=== PATIENT | female | born 1935 | race Caucasian/White ===

== ENCOUNTER 2017-04-10 16:53 | Emergency (ER) | payer MEDICARE ==
[2015-03-12 09:35] VITALS: BMI 36.6
[~2017-04-10 16:53] MED LIST: ARAVA10 MG PO; CARAFATE1 G/10 ML PO; INDERAL LA80 MG PO; LASIX40 MG PO; LEXAPRO10 MG PO; MEDROL2 MG PO; METHOTREXATE2.5 MG PO; NEXIUM40 MG PO; NYSTATIN ORAL SU5 ML PO; NYSTATIN1 PWD TOPICAL; PHENERGAN25 M1 PO; PREMARIN1.25 MG PO; ZOFRAN4 MG PO
[2017-04-10 18:14] LABS: BASOPHILS 2.6 % (0-2); EOSINOPHILS 7.5 % (0-7); HEMATOCRIT 41.8 % (36.0-48.0); HEMOGLOBIN 14.1 g/dL (12-16); IMMATURE GRANULOCYTES 0.2 % (0-5); LYMPHOCYTES 43.3 % (15-50); MCH 34.8 pg (26.0-34.0); MCHC 33.7 g/dL (31.0-37.0); MCV 103.2 fL (80.0-100.0); MEAN PLATELET VOLUME 11.5 fL (7.4-10.4); MONOCYTES 7.3 % (2-11); NEUTROPHILS 39.1 % (40-80); PLATELET COUNT 183 10x3/uL (130-400); RBC 4.05 10x6/uL (4.00-5.40); RDW 15.1 % (11.5-14.5); WBC 4.9 10x3/uL (4.8-10.8)
[2017-04-10 18:29] LABS: ANION GAP 12.8 mmol/L (8-16); BILIRUBIN - TOTAL 1.22 mg/dL (0.2-1.3); CARBON DIOXIDE 25.7 mmol/L (21.0-32.0); CREATININE - SERUM 0.9 mg/dL (0.6-1.3); POTASSIUM - SERUM 3.5 mmol/L (3.5-5.1); PROTEIN - SERUM 7.2 g/dL (6.4-8.2)
== END 2017-04-10 19:00 | disposition left against medical advice (07) ==
LOC: D.ER 16:53
PROVIDERS: Emergency Medicine
DX: R11.0 Nausea (principal); K21.9 Gastro-esophageal reflux disease without esophagitis; I10 Essential (primary) hypertension; E11.9 Type 2 diabetes mellitus without complications; F32.9 Major depressive disorder, single episode, unspecified

== ENCOUNTER 2017-08-24 11:10 | Observation (INO) | payer MEDICARE ==
[~2017-08-24] VITALS: Ht 160 cm; Wt 85.3 kg
[2017-08-24 12:06] LABS: BASOPHILS 0.6 % (0-2); EOSINOPHILS 3.3 % (0-7); HEMATOCRIT 43.3 % (36.0-48.0); HEMOGLOBIN 14.7 g/dL (12-16); IMMATURE GRANULOCYTES 0.4 % (0-5); LYMPHOCYTES 30.8 % (15-50); MCH 35.5 pg (26.0-34.0); MCHC 33.9 g/dL (31.0-37.0); MCV 104.6 fL (80.0-100.0); MEAN PLATELET VOLUME 11.9 fL (7.4-10.4); MONOCYTES 6.4 % (2-11); NEUTROPHILS 58.5 % (40-80); RBC 4.14 10x6/uL (4.00-5.40); RDW 15.4 % (11.5-14.5); WBC 10.2 10x3/uL (4.8-10.8)
[2017-08-24 12:22] LABS: PLATELET COUNT 127 10x3/uL (130-400)
[2017-08-24 12:23] LABS: ALBUMIN 3.3 g/dL (3.4-5.0); ANION GAP 15.9 mmol/L (8-16); BILIRUBIN - TOTAL 3.94 mg/dL (0.2-1.3); CALCIUM 9.2 mg/dL (8.5-10.1); CARBON DIOXIDE 26.1 mmol/L (21.0-32.0); CREATININE - SERUM 0.9 mg/dL (0.6-1.3); PROTEIN - SERUM 8.1 g/dL (6.4-8.2)
[2017-08-24 14:32] LABS: UDS - AMPHET NEGATIVE QUAL (NEGATIVE); UDS - BARB NEGATIVE QUAL (NEGATIVE); UDS - BENZO NEGATIVE QUAL (NEGATIVE); UDS - COCAINE NEGATIVE QUAL (NEGATIVE); UDS - OPIATE POSITIVE QUAL (NEGATIVE); UDS - PCP NEGATIVE QUAL (NEGATIVE); UDS - THC NEGATIVE QUAL (NEGATIVE)
[2017-08-24 14:35] LABS: APPEARANCE CLEAR (CLEAR); BILIRUBIN NEGATIVE (NEGATIVE); COLOR YELLOW (YELLOW); GLUCOSE NEGATIVE (NEGATIVE); KETONE NEGATIVE (NEGATIVE); NITRITE NEGATIVE (NEGATIVE); PROTEIN NEGATIVE (NEGATIVE); UROBILINOGEN NORMAL (NORMAL)
[2017-08-24 14:36] LABS: BACTERIA FEW /hpf (NONE SEEN); EPITHELIAL CELLS 0-5 /hpf (0-5); WHITE CELLS - URINE 0-5 /hpf (0-5)
--- NOTE | 2017-08-24 17:55 | NUR ---
PT ARRIVES FROM ER VIA STRETCHER ACCOMPANIED BY ER NURSE. PLACED ON TELE, NSR ON MONITOR - HR 97. VSS, AFEBRILE. PT HAS REPORTEDLY ORTHOSTATIC HYPOTENSION IN THE ER. INSTRUCTED PT AND SON THAT PT NEEDS TO STAY IN THE BED AND TO USE CALL LIGHT FOR ASSIST. BED ALARM SET. NS @ 100 CC/HR INFUSING FROM ED TO RIGHT HAND IV SITE, SITE WITHOUT REDNESS OR SWELLING. NO NEEDS VOICED. WILL CONT TO MONITOR.
[2017-08-24 18:10] VITALS: BP 139/46; BMI 33.3
[2017-08-24] MEDS ORDERED: PREDNISONE1 MG PO (18:21)
[2017-08-24] MEDS ORDERED: OXYBUTYNIN CHLOR5 MG PO (18:21)
[2017-08-24] MEDS ORDERED: AMBIEN5 MG PO (18:22)
[2017-08-24] MEDS ORDERED: REGLAN5 MG PO (18:22)
[2017-08-24] MEDS ORDERED: LEVOTHYROXINE50 MCG PO (18:22)
[2017-08-24 21:02] VITALS: BP 123/48
[2017-08-25 00:30] VITALS: BP 92/66
[2017-08-25 06:03] VITALS: BP 95/56
--- NOTE | 2017-08-25 07:10 | NUR ---
RECEIVED REPORT. ASSUMED CARE OF PATIENT. RESTING WITH EYES CLOSED. RESP EVEN AND UNLABORED. EASILY AROUSED. NO DISTRESS. CALL LIGHT WITHIN REACH.
[2017-08-25 08:07] VITALS: BP 132/77
[2017-08-25 09:28] VITALS: Ht 160 cm; Wt 85.3 kg
--- NOTE | 2017-08-25 09:50 | NUR ---
ASSISTED PATIENT OFF BEDPAN. INCONTINENT CARE PROVIDED. NO DISTRESS.
--- NOTE | 2017-08-25 11:30 | NUR ---
RESTING IN BED WITH EYES CLOSED. EASILY AROUSED. NO DISTRESS. CALL LIGHT WITHIN REACH.
--- NOTE | 2017-08-25 11:46 | NUR ---
SCD'S APPLIED TO BILATERAL LOWER EXTREMITES AT THIS TIME.
[2017-08-25 13:38] VITALS: BP 130/58
[2017-08-25 14:57] LABS: BASOPHILS 0.5 % (0-2); HEMATOCRIT 35.8 % (36.0-48.0); HEMOGLOBIN 12.1 g/dL (12-16); IMMATURE GRANULOCYTES 0.4 % (0-5); LYMPHOCYTES 27.2 % (15-50); MCH 35.4 pg (26.0-34.0); MCHC 33.8 g/dL (31.0-37.0); MCV 104.7 fL (80.0-100.0); MEAN PLATELET VOLUME 12.3 fL (7.4-10.4); MONOCYTES 9.8 % (2-11); NEUTROPHILS 60.1 % (40-80); PLATELET COUNT 111 10x3/uL (130-400); RBC 3.42 10x6/uL (4.00-5.40); RDW 15.8 % (11.5-14.5); WBC 8.2 10x3/uL (4.8-10.8)
[2017-08-25 15:12] LABS: ANION GAP 10.5 mmol/L (8-16); BILIRUBIN - TOTAL 4.2 mg/dL (0.2-1.3); CALCIUM 7.7 mg/dL (8.5-10.1); CARBON DIOXIDE 25.3 mmol/L (21.0-32.0); CREATININE - SERUM 0.8 mg/dL (0.6-1.3); POTASSIUM - SERUM 3.8 mmol/L (3.5-5.1)
--- NOTE | 2017-08-25 15:23 | NUR ---
Rehab Prescreening Consult recieved and the chart has been reviewed. This patient is a new admission and has a pending consult with Dr Chau, and PT. At this time we are unable to determine what her rehab needs are. Rehab will follow along and see how she progresses. Starr Rowe RN Clinical Liaison, Rehab
[2017-08-25 15:26] LABS: ALBUMIN 2.4 g/dL (3.4-5.0); PROTEIN - SERUM 5.7 g/dL (6.4-8.2)
[2017-08-25 15:37] LABS: CREATINE KINASE 81 UL (21-215)
[2017-08-25 15:38] LABS: CKMB 0.9 U/L (0.0-3.6)
[2017-08-25 15:39] LABS: TROPONIN-I 0.199 ng/mL (0.000-0.060)
[2017-08-25 16:52] VITALS: BP 136/54
--- NOTE | 2017-08-25 19:37 | NUR ---
PT IN BED SON. FAMILY AT BEDSIDE. DENIES NEEDS AT THIS TIME.
[2017-08-25 21:33] LABS: CKMB 1.1 U/L (0.0-3.6); CREATINE KINASE 75 UL (21-215)
[2017-08-25 21:36] LABS: TROPONIN-I 0.172 ng/mL (0.000-0.060)
[2017-08-25 21:53] VITALS: BP 147/46
[2017-08-26] VITALS (9 sets, daily range): BP systolic 136–167; BP diastolic 42–88
[2017-08-26 03:50] LABS: BASOPHILS 0.3 % (0-2); EOSINOPHILS 2.9 % (0-7); HEMATOCRIT 33.2 % (36.0-48.0); HEMOGLOBIN 11.6 g/dL (12-16); IMMATURE GRANULOCYTES 0.3 % (0-5); LYMPHOCYTES 29.8 % (15-50); MCH 35.9 pg (26.0-34.0); MCHC 34.9 g/dL (31.0-37.0); MCV 102.8 fL (80.0-100.0); MEAN PLATELET VOLUME 12.3 fL (7.4-10.4); MONOCYTES 7.5 % (2-11); NEUTROPHILS 59.2 % (40-80); PLATELET COUNT 113 10x3/uL (130-400); RBC 3.23 10x6/uL (4.00-5.40); RDW 15.5 % (11.5-14.5); WBC 6.7 10x3/uL (4.8-10.8)
[2017-08-26 04:38] LABS: ALBUMIN 2.1 g/dL (3.4-5.0); ALKALINE PHOSPHATASE 130 U/L (46-116); ALT (SGPT) 12 U/L (10-68); CALC OSMOLALITY 267 mosm/kg (275-300); CALCIUM 7.9 mg/dL (8.5-10.1); CARBON DIOXIDE 25.8 mmol/L (21.0-32.0); CHLORIDE - SERUM 104 mmol/L (98-107); CREATINE KINASE 64 UL (21-215); CREATININE - SERUM 0.8 mg/dL (0.6-1.3); GLUCOSE 103 mg/dL (74-106); POTASSIUM - SERUM 3.8 mmol/L (3.5-5.1); PROTEIN - SERUM 5.7 g/dL (6.4-8.2); SODIUM 135 mmol/L (136-145); TROPONIN-I 0.113 ng/mL (0.000-0.060); UREA NITROGEN 8 mg/dL (7-18); eGFR NON AFRICAN AMERICAN 73 mL/min (90-120)
--- NOTE | 2017-08-26 05:29 | NUR ---
PT LYING IN BED, AWAKE, ALERT, PA SIDE SEAM ENVELOPE MACHINE OPERATOR AT BEDSIDE. NO NEEDS, CONTINUE TO MONITOR CLOSELY. BED LOW, CALL LIGHT IN REACH, SIDE RAILS X 2, HOB 35 DEGREES.
--- NOTE | 2017-08-26 06:23 | NUR ---
PT IV REMOVED AT THIS TIME. CATH TIP INTACT WILL ATTEMPT TO RESITE.
--- NOTE | 2017-08-26 07:09 | NUR ---
22G IV TO LEFT WRIST WITH 2 ATTEMPTS. COVERED WITH OP SITE, DATED AND INITIALED. TOLERATED WELL
--- NOTE | 2017-08-26 07:30 | NUR ---
REPORT RECEIVED. RR EVEN AND UNLABORED, PT REPORTS HAVING FREQUENT LOOSE STOOLS. WILL CHECK PT FOR C-DIFF. PT REPORTS PAIN IN STOMACH AT 6/10. WILL CTM.
--- NOTE | 2017-08-26 09:40 | NUR ---
FAMILY CALLED REGARDING PT CONDTION, DISCUSSED PT CONDITION WITH FAMILY MEMBER. VERBALIZED UNDERSTANDING.
--- NOTE | 2017-08-26 18:19 | NUR ---
Patient Name: GAVI CREWS Admission Status: ER Accout number: [id number] Admission Date: 08-24-2017 : 1934 Admission Diagnosis: Attending: MAURI DC Current LOS: 2 Anticipated DC Date: 08-27-2017 Planned Disposition: Inpatient Rehab Primary Insurance: MEDICARE A & B PLANNED EXTERNAL PROVIDER: [facility] INPATIENT REHAB Discharge Planning Comments: * Is the patient Alert and Oriented? Yes 0 * How many steps to enter\exit or inside your home? 5 0 * PCP DR. OCONNOR 0 * Pharmacy [facility] [address] 0 * Preadmission Environment Home with Family 0 * ADLs Independent 0 * Equipment Cane 0 * Other Equipment NO MEDICAL EQUIPMENT PROVIDER PREFERENCE 0 * List name and contact numbers for known caregivers / representatives who currently or will assist patient after discharge: BELIA AVILA, SON, 0 * Community resources currently utilized None 0 * Please name any agencies selected above. NONE 0 * Additional services required to return to the preadmission environment? Yes * Can the patient safely return to the preadmission environment? Yes 0 * Has this patient been hospitalized within the prior 30 days at any hospital? No 0 CM RECEIVED ORDER FOR INPATIENT REHAB PRESCREENING. CM MET WITH PT IN ROOM TO DISCUSS DISCHARGE PLANNING AND NEEDS. PT REPORTS LIVING AT HOME INDEPENDENTLY WITH HER ADULT SON. PT HAS A CANE AND NO MEDICAL EQUIPMENT PROVIDER PREFERENCE. PT HAS NO OUTSIDE SERVICES ASSISTING IN THE HOME. CM DISCUSSED AVAILABILITY OF HOME HEALTH, REHAB SERVICES AND MEDICAL EQUIPMENT. CM DISCUSSED LOCATIONS AND TYPES OF REHABS AVAILABLE. PT WOULD LIKE TO STAY AT [facility] FOR REHAB IF POSSIBLE, FEELS THAT SHE CAN PARTICIPATE FULLY AND GET BACK TO HER LEVEL OF INDEPENDENCE FOR DISCHARGE HOME. PT REPORTS HER SON WILL PICK HER UP FOR DISCHARGE HOME. CM WAITING RESULTS OF INPATIENT REHAB PRESCREENING BY [facility] INPATIENT [facility]. Water Filterer Helper: Naeem Botello
--- NOTE | 2017-08-26 18:20 | NUR ---
PT RESTING QUIETLY, RR EVEN AND UNLABORED. PT DENIES NEEDS AT THIS TIME. WILL GIVE REPOR TO PT CONDTION FOR THE DAY.
--- NOTE | 2017-08-26 19:30 | NUR ---
PT. IN BED WITH HOB SLIGHTLY ELEVATED FOR COMFORT. ASSESSMENT COMPLETED. NO VOICED NEEDS AT THIS TIME. CALL LIGHT WITHIN REACH.
--- NOTE | 2017-08-26 23:28 | NUR ---
PT. IN BED WITH HOB UP SLIGHTLY FOR COMFORT. EYES CLOSED AND RESP. EVEN. IV INFUSING VIA PUMP WITH MULTIPLE ALARMS IV SITE TO LEFT WRIST IS POSITIONAL. EXPLAINED THE PROBLEM TO PT. AND SHE WILL TRY TO KEEP WRIST FROM BENDING. CALL LIGHT REMAINS WITHIN REACH.
--- NOTE | 2017-08-27 03:25 | NUR ---
PT. IN BED WITH HOB UP FOR COMFORT WITH EYES CLOSED AND RESP. EVEN. IV INFUSING VIA PUMP AT 100/HR WITHOUT ANY ALARMS RECENTLY. CALL LIGHT WITHIN REACH.
--- NOTE | 2017-08-27 07:32 | NUR ---
AM ROUNDING- RECEIVED REPORT FROM BANK APPRAISER NURSE CRISTIANA. PT IS CURRENTLY LAYING IN BED ON BACK WITH EYES OPEN RESTING. LAB IN ROOM CURRENTLY OBTAINING LAB DRAW. ON ROOM AIR. JOHNATHON IN TELEMETRY AWARE THAT PT HAS ORDERS FOR TELEMETRY. IV SEEN TO LEFT WRIST WITH NS RUNNING AT 100CC. SCDS ARE ON. NO NEED AT THIS CURRENT TIME. WILL CONTINUE TO MONITOR AND CONTINUE WITH PLAN OF CARE.
[2017-08-27 07:36] LABS: BASOPHILS 0.6 % (0-2); EOSINOPHILS 6.7 % (0-7); HEMATOCRIT 35.4 % (36.0-48.0); HEMOGLOBIN 12.3 g/dL (12-16); IMMATURE GRANULOCYTES 0.3 % (0-5); LYMPHOCYTES 23.6 % (15-50); MCH 36.1 pg (26.0-34.0); MCHC 34.7 g/dL (31.0-37.0); MCV 103.8 fL (80.0-100.0); MONOCYTES 8.8 % (2-11); PLATELET COUNT 120 10x3/uL (130-400); RBC 3.41 10x6/uL (4.00-5.40); RDW 16.3 % (11.5-14.5)
[2017-08-27 08:00] VITALS: BP 146/76
[2017-08-27 08:16] LABS: ALBUMIN 2.3 g/dL (3.4-5.0); ALKALINE PHOSPHATASE 130 U/L (46-116); BILIRUBIN - TOTAL 1.96 mg/dL (0.2-1.3); CALC OSMOLALITY 275 mosm/kg (275-300); CALCIUM 8.6 mg/dL (8.5-10.1); CARBON DIOXIDE 24.4 mmol/L (21.0-32.0); CHLORIDE - SERUM 107 mmol/L (98-107); CREATININE - SERUM 0.6 mg/dL (0.6-1.3); GLUCOSE 107 mg/dL (74-106); PROTEIN - SERUM 6.6 g/dL (6.4-8.2); SODIUM 139 mmol/L (136-145); UREA NITROGEN 6 mg/dL (7-18); eGFR NON AFRICAN AMERICAN > 90 mL/min (90-120)
[2017-08-27 08:21] LABS: ALT (SGPT) 17 U/L (10-68); POTASSIUM - SERUM 4.9 mmol/L (3.5-5.1)
--- NOTE | 2017-08-27 10:38 | NUR ---
UPON DOING DAILY SHIFT ASSESSMENT. PTS BUTTOCK/PERINEAL AREA IS REDDENED. BUTT PASTE APPLIED AND PT TURNED ON LEFT SIDE.
[2017-08-27 12:00] VITALS: BP 182/72
--- NOTE | 2017-08-27 12:00 | NUR ---
Rehab Note- Visited with the patient, the patient is very interested [facility] Acute Rehab. Will admit to [facility] Rehab when ready for discharge. Spoke with RACHAEL Ramsay and LETITIA Aguero. Thank you for this referral! Mariana Jimenez RN Clinical Liaison, [facility] Rehab
--- NOTE | 2017-08-27 17:04 | NUR ---
CALLED REPORT AND SPOKE WITH RONALD. RONALD STATES IT IS OK TO GO AHEAD AND LEAVE PTS IV IN. WILL DO ORDERED. WILL D/C PT PER POLICY AND D/C TO REHAB ORDERED.
--- NOTE | 2017-08-27 17:33 | NUR ---
D/C INSTRUCTIONS EXPLAINED TO PT. D/C PAPERWORK SIGNED BY PT AND PLACED IN CHART. PTS BELONGINGS GATHERED. NOVA LANG RETURNED HEART MONITOR TO JOHNATHON IN TELEMETRY. IV IS IN PLACE (REHAB NURSE RONALD STATES TO GO AHEAD AND LEAVE IT IN). WILL D/C PT TO REHAB ORDERED.
--- NOTE | 2017-08-27 18:20 | NUR ---
1800- PT D/C TO REHAB HAS ORDERED.
--- NOTE | 2017-08-31 13:30 | EC ---
PATIENT:GAVI CREWS DATE OF SERVICE: 08/24/17 SEX: F MEDICAL RECORD: [id number] DATE OF : 34 LOCATION:D.M2 D.213 AGE OF PATIENT: 81 ADMISSION DATE: 08/24/17 REFERRING PHYSICIAN: INTERPRETING PHYSICIAN: THOMAS POSADAS MD ECHOCARDIOGRAM REPORT ECHO CHARGES 4 ECHO COMPLETE CLINICAL DIAGNOSIS: SYNCOPE HX OF HTN ECHOCARDIOGRAPHIC MEASUREMENTS (adult normal given) AC root (d.<3.7cm) 3.6 cm LV Septum d (<1.2 cm> 1.6 cm Valve Excursion 1.7 cm LV Septum (systole) 2.3 cm Left Atria (s.<4.0cm> 4.6 cm LVPW d(<1.2cm) 1.8 cm RV (d.<2.3cm) 3.5 cm LVPW (sytole) 2.3 cm LV diastole(<5.6CM) 4.1 cm MV E-F(>70mm/sec) cm LV systole 2.0 cm LVOT Diameter 1.8 cm MV exc.(>10mm) 1.6 cm Est.ejection fraction (50-75%) % Pericardial Effusion N DOPPLER: LVIT cm/sec A 79.0 cm/sec E 99.0 cm/sec LA cm/sec RVSP 98 mmHg LVOT 112 cm/sec AOP1/2T m/s Asc. Ao 170 cm/sec RVOT 109 cm/sec RA cm/sec PA 154 cm/sec AV Gradient Peak 11.55mmHg AV Mean 5.56 mmHg AV Area 1.6 cm MV Gradient Peak 6.18 mmHg MV Mean 1.96 mmHg MV Area cm COMMENTS: Ring Facer: 2 REID RICH Civil Clerk: 3 Dr. Luciano TAPE# PACS DATE OF SERVICE: 08/25/2017 Adequate 2D echo, color flow and spectral Doppler, and M-mode. LVH is present. LV internal dimension is normal. Wall motion is normal. EF is greater than 55%. Aortic valve is sclerotic. No evidence of stenosis by Doppler interrogation. The left atrium is normal. Mitral valve shows no prolapse. Trace mitral regurgitation. Right-sided chamber is normal. Mild TR by color flow imaging. TRANSINT:[id number] Voice Confirmation ID: [id number] DOCUMENT ID: [id number] ECHOCARDIOGRAM REPORT [id number] VILLALOBOS,THOMAS Martinez MD at 1330 CC: [id number] DICTATION DATE: 08/25/17 161 RIP/MOULD OPERATOR: 08/25/17 1759 DIS IN 08/27/17 [facility] [address] [place] [address]
--- NOTE | 2017-08-31 13:30 | CN ---
PATIENT NAME:ELVA CREWS MEDICAL RECORD: [id number] : 33 LOCATION:[facility] D.2136 ADMIT DATE: 08/24/17 ACCOUNT: [id number] CONSULTING PHYSICIAN: THOMAS POSADAS MD REFERRING PHYSICIAN: MAURI DC MD DATE OF CONSULTATION: 08/25/2017 HISTORY OF PRESENT ILLNESS: Elva Crews is an 81-year-old female, poor historian, history of rheumatoid arthritis, on remittive agents including methotrexate. Was at home with a syncopal episode, it sounds like orthostatic. The patient is a poor historian. No chest pain or other antecedent symptomatology. Was found to be orthostatic at that time and we are asked to see her concerning cardiovascular status. PAST MEDICAL HISTORY: Includes: 1. History of rheumatoid arthritis. 2. Hypothyroidism, on replacement. ALLERGIES: ANTIHISTAMINES AND ASPIRIN. SOCIAL HISTORY: Unobtainable due to the patient factors. REVIEW OF SYSTEMS: Unobtainable due to the patient factors. MEDICATIONS: Include Phenergan 50 mg q.6 hours p.r.n., methotrexate 15 mg q. Thursday, Inderal 80mg p.o. daily, Lexapro 10 mg p.o. daily, Ambien 5 at bedtime p.r.n., Lasix 40 daily p.r.n., Carafate 1 gm a.c. and at bedtime, Reglan 5 mg a.c. and at bedtime, prednisone 1 mg p.o. t.i.d., Synthroid 50 mcg daily, Ditropan 5 mg b.i.d., Arava 10 mg p.o. daily. PHYSICAL EXAMINATION: GENERAL: Pleasant female in no acute distress. VITAL SIGNS: Blood pressure 130/58, pulse 70 and regular. HEENT: Normocephalic, atraumatic. NECK: No JVD or bruit. HEART: Regular. No murmurs are noted. LUNGS: Clear with good air excursion. ABDOMEN: Soft, nontender. EXTREMITIES: Pulse well preserved at 2+ with no edema. IMPRESSION: Syncopal episode. It could be secondary to orthostasis. I agree with hydration, checking echocardiographic study. Enzymes negative at this point. If orthostatic continues to be a problem, could use mineralocorticoid such as Florinef versus ProAmatine. Further recommendation based on the above. TRANSINT:[id number] Voice Confirmation ID: [id number] DOCUMENT ID: [id number] CONSULT REPORT [id number] ELVA CREWS,THOMAS Martinez MD at 1330 CC: [id number] DICTATION DATE: 08/25/17 1507 CORE PASTER: 08/25/17 1713 DIS IN 08/27/17 [place] [id number] [place] [id number]
== END 2017-08-27 18:22 ==
LOC: D.ER 11:10 → OBSVTIME 16:27 → D.M2 16:27
PROVIDERS: Emergency Medicine; ADMIT Emergency Medicine
DX: R55 Syncope and collapse (principal); M06.9 Rheumatoid arthritis, unspecified; I10 Essential (primary) hypertension; K21.9 Gastro-esophageal reflux disease without esophagitis; E03.9 Hypothyroidism, unspecified; I08.1 Rheumatic disorders of both mitral and tricuspid valves; J32.0 Chronic maxillary sinusitis

== ENCOUNTER 2017-08-27 16:26 | Inpatient (IN) | payer MEDICARE ==
[2017-08-26 20:00] VITALS: BP 139/62
[~2017-08-27] VITALS: Ht 157.5 cm; Wt 82.6 kg
[~2017-08-27 16:26] MED LIST changes: +AMBIEN5 MG PO; +LEVOTHYROXINE50 MCG PO; +OXYBUTYNIN CHLOR5 MG PO; +PREDNISONE1 MG PO; +REGLAN5 MG PO
--- NOTE | 2017-08-27 20:00 | NUR ---
PT IN BED WITH HOB UP FOR COMFORT. WATCHING TV. ALERT & ORIENTED X3. LEFT ARM SL. NO O2. SCD'S. INCONTINENT AT TIMES. GROIN & BUTTOCKS ARE VERY RED. BED IN LOWEST POSITION AND CALL LIGHT WITHIN REACH.
[2017-08-27 20:30] VITALS: BP 139/62
--- NOTE | 2017-08-28 | NUR ---
PT LYING IN BED WITH HOB UP FOR COMFORT. EYES CLOSED. CHEST RISING AND FALLING. BED IN LOWEST POSITION AND CALL LIGHT WITHIN REACH.
--- NOTE | 2017-08-28 00:53 | NUR ---
MONCHO DONG TO DO ASSESSMENT.
[2017-08-28 02:26] VITALS: BMI 33.3
--- NOTE | 2017-08-28 02:35 | NUR ---
ADMISSION ASSESSMENT COMPLETE AFTER ASSISTING PRIMARY NURSE TO CLEANSE AND CHANGED PATIENT FROM MODERATE URINARY INCONTINENCE. APPLIED CALMOSEPTINE TO VERY RED EXCORIATED AREAS STRETCHING FROM EXTERNAL LABIA CLEAR TO COCCYX.
--- NOTE | 2017-08-28 04:00 | NUR ---
PT LYING IN BED WITH HOB UP FOR COMFORT. EYES CLOSED. RESPIRATIONS EVEN AND UNLABORED. BED IN LOWEST PSOITION AND CALL LIGHT WITHIN REACH.
[2017-08-28 06:11] LABS: BASOPHILS 0.7 % (0-2); EOSINOPHILS 7.7 % (0-7); HEMATOCRIT 33.4 % (36.0-48.0); HEMOGLOBIN 11.5 g/dL (12-16); IMMATURE GRANULOCYTES 0.2 % (0-5); LYMPHOCYTES 29.6 % (15-50); MCH 35.7 pg (26.0-34.0); MCHC 34.4 g/dL (31.0-37.0); MCV 103.7 fL (80.0-100.0); MEAN PLATELET VOLUME 11.9 fL (7.4-10.4); MONOCYTES 12.5 % (2-11); NEUTROPHILS 49.3 % (40-80); PLATELET COUNT 120 10x3/uL (130-400); RBC 3.22 10x6/uL (4.00-5.40); RDW 15.9 % (11.5-14.5); WBC 5.7 10x3/uL (4.8-10.8)
[2017-08-28 06:37] LABS: CALC OSMOLALITY 274 mosm/kg (275-300); CALCIUM 8.3 mg/dL (8.5-10.1); CARBON DIOXIDE 27.3 mmol/L (21.0-32.0); CHLORIDE - SERUM 107 mmol/L (98-107); CREATININE - SERUM 0.6 mg/dL (0.6-1.3); GLUCOSE 83 mg/dL (74-106); POTASSIUM - SERUM 3.5 mmol/L (3.5-5.1); SODIUM 140 mmol/L (136-145); UREA NITROGEN 4 mg/dL (7-18); eGFR NON AFRICAN AMERICAN > 90 mL/min (90-120)
--- NOTE | 2017-08-28 07:01 | NUR ---
RESTING QUIETLY IN BED. CALL LIGHT IN REACH. BED IN LOWEST POSITION.
[2017-08-28 08:00] VITALS: BP 144/60
--- NOTE | 2017-08-28 08:45 | NUR ---
DR. Arley DC INTO SEE PATIENT. NEW ORDERS RECEIVED
--- NOTE | 2017-08-28 10:00 | NUR ---
PATIENT IN REHAB ROOM. WORKING WITH PHYISCAL THERAPIST. WALKING DOWN HALLWAY WITH WHEELED WALKER, THERAPIST USING GAIT BELT.
--- NOTE | 2017-08-28 12:30 | NUR ---
SALINE LOCK LEFT WRIST REMOVED DUE TO NOT FLUSHING. IV OUT. OCCUATIONAL THERAPIST WORKING WITH PATIENT. HELPED PATIENT WITH A SHOWER.
[2017-08-28 13:08] VITALS: Ht 157.5 cm; Wt 82.6 kg
--- NOTE | 2017-08-28 15:52 | NUR ---
PATIENT ADMITTED TO REHAB FROM ACUTE FLOOR. HER PCP IS . DME AT HOME IS Michelle [facility]ID[facility]. HER [facility]AC[facility] IS [facility]. WILL CONTINUE TO FOLLOW WITH PATIENT AND ASSIST WITH DISCHARGE PLANS.
--- NOTE | 2017-08-28 17:49 | NUR ---
PATIENT HAS SCD'S ON BILATERAL WHILE IN BED.
--- NOTE | 2017-08-28 19:15 | NUR ---
IN BED, AWAKE. APPLIED SCD'S TO OTONIEL CARRILLO'S. ASSISTED HER TO COMPLETE HER MENU.
--- NOTE | 2017-08-28 21:35 | NUR ---
ASSESSMENT AND HS MEDS COMPLETE. REMOVED SCRUB PANTS AND CLEANSED PATIENT FROM SMALL URINE INCONTINENCE. APPLIED CALMOSEPTINE LIBERALLY TO PERINEAL AND PERANAL SKIN DUE TO REDNESS AND EXCORIATION. C/O PAIN LEVEL OF 4/10 (GENERAL BODY ACHES) WHICH SHE ATRIBUTES TO HER RA AND EXERTION IN P/T. GAVE HER TYLENOL 650 MG PO WITH HS MEDS.
[2017-08-28 22:38] VITALS: BP 137/42
--- NOTE | 2017-08-28 22:40 | NUR ---
RESTING QUIETLY IN BED, EYES CLOSED.
--- NOTE | 2017-08-29 00:05 | NUR ---
SITTING UP IN W/C AT BEDSIDE, EATING JELLO. SAYS IS A BIT RESTLESS TONIGHT.
--- NOTE | 2017-08-29 02:40 | NUR ---
CLEANSED AND CHANGED PATIENT FROM LARGE URINE INCONTINENCE. APPLIED CALMOSEPTINE OINTMENT TO REDDENED PERINEAL AND PERIANAL SKIN.
--- NOTE | 2017-08-29 04:15 | NUR ---
RESTING IN BED, EYES CLOSED. APPEARS COMFORTABLE.
--- NOTE | 2017-08-29 05:15 | NUR ---
CLEANSED AND CHANGED PATIENT, HER PINK PAD, AND HER SCRUB TOP AFTER LARGE URINE INCONTINENCE. REAPPLIED CALMOSEPTINE TO EXCORIATION OF PERINEAL AND PERIANAL AREAS AND ASSISTED HER TO DON A FRESH PULL-UP. REMOVED SCD'S.
--- NOTE | 2017-08-29 06:00 | NUR ---
RESTING QUEITLY IN BED, EYES CLOSED.
[2017-08-29 09:06] VITALS: BP 175/68
--- NOTE | 2017-08-29 09:10 | NUR ---
PT AM MEDS ADMINISTERED. PT DENIES NEEDS AT THIS TIME. WCTM.
--- NOTE | 2017-08-29 12:15 | NUR ---
PT EATING LUNCH, C/O NAUSEA. PT PROVIDED WITH EMESIS BAG. WCTM.
--- NOTE | 2017-08-29 18:31 | NUR ---
PT EATING DINNER WITH OT, DENIES NEEDS. WCTM.
--- NOTE | 2017-08-29 19:30 | NUR ---
ASSISTED PT TO BATHROOM AND BACK TO BED.
--- NOTE | 2017-08-29 21:10 | NUR ---
ASSISTED PT TO BATHROOM.
[2017-08-30] VITALS: BP 175/68
--- NOTE | 2017-08-30 01:26 | NUR ---
RESTING IN BED WITH EYES CLOSED. NO S/S OF DISTRESS OBSERVED. CALL LIGHT AND OVERBED TABLE IN REACH.
--- NOTE | 2017-08-30 01:33 | NUR ---
REST IN BED, EYE CLOSE, CALL LIGHT IN REACH.
[2017-08-30 09:12] VITALS: BP 161/83
--- NOTE | 2017-08-30 09:43 | NUR ---
PT AM MEDS ADMINISTERD. PT MAEVE MCKENNA. ANIA.
--- NOTE | 2017-08-30 12:15 | NUR ---
PT EATING LUNCH, DENIES NEEDS. WCTM.
--- NOTE | 2017-08-30 18:02 | NUR ---
PT SITTING UP IN CHAIR EATING DINNER, DENIES NEEDS. WCTM.
[2017-08-30 19:00] VITALS: BP 137/54
--- NOTE | 2017-08-30 20:00 | NUR ---
PT IN BED WITH HOB UP FOR COMFORT. WATCHING TV. ALERT & ORIENTED. NO O2. NO IV. INCONTINENT AT NIGHT. CRUSH BIG PILLS IN APPLESAUCE. SCD'S. BED IN LOWEST POSITION AND CALL LIGHT WITHIN REACH. AARTI ALARM ON.
--- NOTE | 2017-08-31 | NUR ---
PT IN BED WITH HOB UP FOR COMFORT. EYES CLOSED. CHEST RISING AND FALLING. BED IN LOWEST POSITION AND CALL LIGHT WITHIN REACH.
--- NOTE | 2017-08-31 04:00 | NUR ---
T LYING IN BED WITH HOB UP FOR COMFORT. EYES CLOSED. RESPIRATIONS ARE EVEN ND UNLABORED. BED IN LOWEST POSITION AND CALL LIGHT WITHIN REACH.
--- NOTE | 2017-08-31 05:11 | NUR ---
RESTING IN BED WITH EYES CLOSED. NO S/S OF DISTRESS OBSERVED. CALL LIGHT AND OVERBED TABLE IN REACH.
[2017-08-31 06:31] LABS: BASOPHILS 0.9 % (0-2); EOSINOPHILS 7.2 % (0-7); HEMATOCRIT 34.3 % (36.0-48.0); HEMOGLOBIN 11.8 g/dL (12-16); IMMATURE GRANULOCYTES 0.2 % (0-5); LYMPHOCYTES 38.6 % (15-50); MCH 35.5 pg (26.0-34.0); MCHC 34.4 g/dL (31.0-37.0); MCV 103.3 fL (80.0-100.0); MEAN PLATELET VOLUME 11.3 fL (7.4-10.4); MONOCYTES 10.8 % (2-11); NEUTROPHILS 42.3 % (40-80); PLATELET COUNT 142 10x3/uL (130-400); RBC 3.32 10x6/uL (4.00-5.40); WBC 6.4 10x3/uL (4.8-10.8)
[2017-08-31 06:43] LABS: CALC OSMOLALITY 275 mosm/kg (275-300); CALCIUM 8.3 mg/dL (8.5-10.1); CHLORIDE - SERUM 105 mmol/L (98-107); CREATININE - SERUM 0.7 mg/dL (0.6-1.3); GLUCOSE 81 mg/dL (74-106); SODIUM 140 mmol/L (136-145); UREA NITROGEN 7 mg/dL (7-18); eGFR NON AFRICAN AMERICAN 85 mL/min (90-120)
[2017-08-31 07:59] VITALS: BP 148/57
--- NOTE | 2017-08-31 08:04 | NUR ---
PATIENT IS ALERT/ORIENT X4. SITTING UP IN WHEELCHAIR TO EAT BREAKFAST. TRAY SET UP IN FRONT OF PATIENT. CALL LIGHT WITHIN REACH. VOICES NO NEEDS AT THIS TIME.
--- NOTE | 2017-08-31 09:00 | NUR ---
DR Kiko DC INTO SEE PATIENT. NEW ORDERS RECEIVED. URINE COLLECTED AND BROUGHT UP TO LAB
--- NOTE | 2017-08-31 10:37 | NUR ---
PATIENT IS A MIN ASST OF ONE FROM BED INTO WHEELCHAIR.
[2017-08-31 10:45] LABS: APPEARANCE TURBID (CLEAR); BILIRUBIN NEGATIVE (NEGATIVE); COLOR YELLOW (YELLOW); GLUCOSE NEGATIVE (NEGATIVE); KETONE NEGATIVE (NEGATIVE); NITRITE NEGATIVE (NEGATIVE); PROTEIN TRACE mg/dL (NEGATIVE); SPECIFIC GRAVITY 1.005 (1.005-1.020); UROBILINOGEN NORMAL (NORMAL)
[2017-08-31 10:46] LABS: BACTERIA FEW /hpf (NONE SEEN); EPITHELIAL CELLS 0-5 /hpf (0-5); WHITE CELLS - URINE >50 /hpf (0-5)
--- NOTE | 2017-08-31 11:18 | RHP ---
PATIENT: GAVI CREWS MEDICAL RECORD: [id number] ACCOUNT: [id number] LOCATION:[facility]1113 : 34 ADMISSION DATE: 08/27/17 REHABILITATION HISTORY AND PHYSICAL EXAMINATION POST ADMISSION PHYSICIAN EXAMINATION POST-ADMISSION PHYSICAL EXAMINATION AND HISTORY AND PHYSICAL DATE OF ADMISSION TO THE REHAB: 08/27/2017 ADMITTING DIAGNOSES: Orthostatic hypotension. HISTORY OF PRESENT ILLNESS: The patient admitted to the inpatient rehab for debility secondary to orthostatic hypotension with multiple falls. She is an 81-year-old female patient of Dr. Ponce with diabetes, hypertension, hypothyroidism, rheumatoid arthritis, who was brought to the Emergency Room after a syncopal episode. She was admitted to the acute [facility] with syncope and orthostatic hypotension. States she was in her room talking with her son when she became somewhat dizzy and fell. Her son lives with her, but states that he is never there that he works all the time. States that she was independent with ADLs and used a single-point cane for ambulation. She still feels like a flare-up of her RA that caused her to just become so weak so quickly. She has been seeing cardiology, feels like she has been having problems with orthostatic hypotension and is on telemetry. She has had some episodes of both urinary and bowel incontinence, which she states she has been incontinent at home. She has been checked for CDT, which was negative. She has had some periods of confusion and was being seen by speech therapy and has had some dietary modifications. She was previously moderately independent with ambulation using a single-point cane and moderately independent with ADLs. Since this illness, she is currently mod-to-max assist with ADLs and max assist with ambulation. She plans to return home at her prior level of function if possible. She does have a son once again that lives there. 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 PAST MEDICAL HISTORY: Significant for rheumatoid arthritis, hypothyroidism, cataracts, hypertension, heart murmur, acid reflux, and depression. PAST SURGICAL HISTORY: Includes knee surgery, hysterectomy, and shoulder surgery. ALLERGIES: ANTIHISTAMINES AND ASPIRIN. CURRENT MEDICATIONS: Include methotrexate that she takes 20 mg on Thursday. She is on Synthroid 50 mcg daily. Arava 10 mg daily. Estrogen 1.25 mg daily. She is on Protonix 40 mg daily. Lexapro 10 mg daily. Tylenol 650 mg every 4 hours. She is on Calmoseptine. Carafate 1 g q.a.c. and at bedtime. Promethazine 50 mg every 6 hours p.r.n. Prednisone, she takes 1 mg t.i.d. She is on Ditropan 5 mg b.i.d. Zofran 4 mg every 6 hours p.r.n. Metoclopramide 5 mg q.a.c. and at bedtime. Furosemide 40 mg daily. Polyethylene glycol 17 grams in 8 ounces of water daily. HABITS: No alcohol or tobacco use. HISTORY AND PHYSICAL [id number] GAVI CREWS FAMILY HISTORY: Noncontributory. SOCIAL HISTORY: The patient hopes to return back home and get back to her prior level of functioning. REVIEW OF SYSTEMS: GENERAL: Does complain of some weakness and fatigue. HEENT: Denies cold, cough, or congestion. CARDIOVASCULAR: Denies any chest pain. LUNGS: Denies any shortness of breath. PHYSICAL EXAMINATION: VITAL SIGNS: Stable. She is afebrile. GENERAL: A well-developed friendly white female, in no acute distress upon exam. HEENT: Normocephalic and atraumatic. Mucosa moist. NECK: Supple. No lymphadenopathy. LUNGS: Clear at this time. HEART: Regular rate and rhythm. ABDOMEN: Benign. EXTREMITIES: No clubbing, cyanosis or edema. NEUROLOGIC: She seems intact. LABORATORY DATA: Her white count is 5.7, H&H of 11.5 and 33.4, and platelet count was noted to be 120. Her sodium is 140, potassium 3.5, BUN and creatinine of 40 and 0.6. Blood sugar was noted to be 83. ASSESSMENT: This is an 81-year-old female patient admitted to rehab with a working diagnosis of orthostatic hypotension, complicated by numerous falls and also pretty severe rheumatoid arthritis. The patient has potential to make improvement. We will institute the following multidisciplinary therapies including, but not limited to physical, occupational, respiratory, speech, nutritional services, prosthetics and orthotics. Given her complex condition and risk for more complications, rehabilitation services cannot be provided at a low level of care such as a detention facility. PLAN: 1. Admit to [facility] rehab for intensive inpatient therapy to include the following disciplines: A. Physical therapy to improve gait, all transfer skills and bed mobility to a modified independent level. B. Occupational therapy to improve activities of daily living to a modified independent level. C. Case management to assist with discharge planning and placement options. D. Nutrition to assist with nutritional needs. E. Rehabilitation nursing to assist in monitoring the patient's underlying medical conditions and to assist with any type of bowel or bladder management. 2. The patient's current medication and medical care will be continued. 3. The patient will be placed on standard fall precautions. 4. We will go ahead and place her back on folic acid, I imagine this is why her MCV is increased. 5. Discuss this patient during care team staff meeting this week. TRANSINT:[id number] Voice Confirmation ID: [id number] DOCUMENT ID: [id number] HISTORY AND PHYSICAL [id number] GAVI CREWS notes whether there has been none or any medical/functional change since admission: - No change since prescreen. [facility] attests patient continues to be appropriate for IRF: - Continues to be appropriate. MAURI DC MD at 1118 CC: [id number] DICTATION DATE: 08/28/17 0843 FIRE SPRINKLER FITTER: 08/28/17 1110 ADM IN [facility] [address] [place] [address]
--- NOTE | 2017-08-31 12:49 | NUR ---
PATIENT SITTING UP IN WHEELCHAIR FOR LUNCH. CALL LIGHT WITHIN REACH. VOICES NO NEEDS AT THIS TIME.
--- NOTE | 2017-08-31 13:13 | NUR ---
PATIENT C/O OF LEFT EAR ACHE. PRN TYLENOL GIVEN. NOTE LEFT WITH DR Kiko DC IN REGARD TO EAR ACHE
--- NOTE | 2017-08-31 17:50 | NUR ---
sitting up eating.denies needs.
--- NOTE | 2017-08-31 17:50 | NUR ---
SITTING UP IN BED.DENIES NEEDS.CL IN REACH.
--- NOTE | 2017-08-31 18:21 | NUR ---
PATIENT RESTING IN BED TO EAT SUPPER. GOOD APPETITE. ATE 100%.
[2017-08-31 19:30] VITALS: BP 105/60
--- NOTE | 2017-08-31 20:00 | NUR ---
PT LAYING IN BED WITH HOB ELEVATED WATCHING TV. NO SIGNS OF DISTRESS. SCD'S ON. BED IN LOWEST POSITION. 2 SIDE RAILS UP. AARTI ALARM ON. CALL LIGHT IN REACH. BED SIDE TABLE IN REACH. NO FURTHER NEEDS AT THIS TIME.
--- NOTE | 2017-08-31 22:50 | NUR ---
RECEIVED PATIENT IN ROOM. RESTING IN BED WITH HOB ELEVATED AND WATCHING TV. ALERT AND ORIENTED. ASSISTED PATIENT TO BATHROOM AND ASSISTED BACK IN BED. SCD'S ON. BED IN LOWEST POSITION. 2 SIDE RAILS UP. AARTI ALARM ON. CALL LIGHT IN REACH. BED SIDE TABLE IN REACH. NO FURTHER NEEDS AT THIS TIME.
--- NOTE | 2017-08-31 23:00 | NUR ---
PT ASLEEP. NO SIGNS OF DISTRESS. SCD'S ON. BED IN LOWEST POSITION. 2 SIDE RAILS UP. CALL LIGHT IN REACH. BED SIDE TABLE IN REACH.
--- NOTE | 2017-09-01 03:06 | NUR ---
RESTING IN BED WITH EYES CLOSED.
--- NOTE | 2017-09-01 08:01 | NUR ---
SITTING UP IN BED RESTING QUIETLY. DENIES ANY PAIN OR NEEDS. ALERT AND ORIENTED X4. CALL LIGHT WITHIN REACH, BED IN LOWEST POSITION, SR X2. WILL CONTINUE TO MONITOR
[2017-09-01 08:46] VITALS: BP 144/54
--- NOTE | 2017-09-01 10:51 | NUR ---
IN THERAPY GYM WITH OCCUPATIONAL THERAPY. NO S/SX OF ACUTE DISTRESS. WILL CONTINUE TO MONITOR
--- NOTE | 2017-09-01 12:50 | NUR ---
RESTING QUIETLY.CL IN REACH.
--- NOTE | 2017-09-01 12:52 | NUR ---
Nutrition Follow Up: Pt stated that her appetite was good. She requested ice cream - RD brought some to pt. Pt is eating 47% meal avg on a regular mechanical soft diet. She is receiving Boost TID. +BM 08/28/17. Labs reviewed. Meds noted including Prednisone, Lasix. Rec continue current diet, supplement regimen. Pt may benefit from an appetite stimulant. RD following.
--- NOTE | 2017-09-01 15:27 | NUR ---
LYING IN BED EYES CLOSED RESTING. APPROPRIATE RISE AND FALL OF CHEST. NO S.SX OF RESPIRATORY DISTRESS. CALL LIGHT AND PERSONAL BELONGINGS WITHIN REACH, BED LOW AND ALARM ON. WILL CONTINUE TO MONITOR
--- NOTE | 2017-09-01 19:30 | NUR ---
PATIENT IN BED, AWAKE. DENIES NEEDS.
--- NOTE | 2017-09-01 20:35 | NUR ---
ASSESSMENT AND HS MEDS COMPLETE. GAVE PATIENT TYLENOL 650MG PO FOR GENERAL BODY DISCOMFORT OF LEVEL 6/10. DENIES FURTHER NEEDS.
[2017-09-01 21:37] VITALS: BP 131/47
--- NOTE | 2017-09-01 22:50 | NUR ---
RESTING IN BED, EYES CLOSED.
--- NOTE | 2017-09-02 | NUR ---
IN BED, EYES CLOSED. APPEARS COMFORTABLE.
--- NOTE | 2017-09-02 02:00 | NUR ---
MAULIKSLeroy IN BED, EYES CLOSED. NO EVIDENT DISCOMFORT.
--- NOTE | 2017-09-02 04:15 | NUR ---
ASSISTED PATIENT UP TO BR TO URINATE AND CHANGE HER BRIEF AFTER LARGE URINE INCONTINENCE DURING SLEEP. ALSO REQUIRED CHANGING HER PINK PAD AND 1 BLUE PAD DUE TO SATURATION.
--- NOTE | 2017-09-02 06:20 | NUR ---
IN BED, AWAKE. JUST ASSISTED HER UP TO BR TO URINATE AND BACK TO BED. NO INCONTINENCE THIS TIME.
[2017-09-02 06:56] LABS: BASOPHILS 1.8 % (0-2); EOSINOPHILS 8.7 % (0-7); HEMATOCRIT 36.2 % (36.0-48.0); HEMOGLOBIN 12.4 g/dL (12-16); IMMATURE GRANULOCYTES 0.2 % (0-5); LYMPHOCYTES 45.4 % (15-50); MCH 35.3 pg (26.0-34.0); MCHC 34.3 g/dL (31.0-37.0); MCV 103.1 fL (80.0-100.0); MEAN PLATELET VOLUME 11.7 fL (7.4-10.4); MONOCYTES 16.2 % (2-11); NEUTROPHILS 27.7 % (40-80); RBC 3.51 10x6/uL (4.00-5.40); RDW 16.2 % (11.5-14.5); WBC 6.1 10x3/uL (4.8-10.8)
[2017-09-02 07:12] LABS: PLATELET COUNT 206 10x3/uL (130-400)
[2017-09-02 07:13] LABS: ANION GAP 11.6 mmol/L (8-16); CALCIUM 9.2 mg/dL (8.5-10.1); CARBON DIOXIDE 29.6 mmol/L (21.0-32.0); CREATININE - SERUM 0.8 mg/dL (0.6-1.3); POTASSIUM - SERUM 4.2 mmol/L (3.5-5.1)
[2017-09-02 08:00] VITALS: BP 138/62
--- NOTE | 2017-09-02 08:00 | NUR ---
DENIES NEEDS.CL IN REACH.
--- NOTE | 2017-09-02 08:00 | NUR ---
PATIENT ALERT/ORIENT X4. AARTI ALARM ON IN BED. PATIENT USING CALL LIGHT FOR NEEDS. CALL LIGHT WITHIN REACH.
--- NOTE | 2017-09-02 10:10 | NUR ---
PATIENT IN REHAB ROOM. WORKING WITH PHYSICAL THERAPIST. DENIES ANY PAIN/DISC AT THIS TIME.
--- NOTE | 2017-09-02 12:30 | NUR ---
PATIENT RESTING IN BED AFTER THERAPY AND LUNCH. SCD'S ON BILATERAL WHEN PATIENT IN BED.
--- NOTE | 2017-09-02 15:30 | NUR ---
PATIENT HELPED INTO BATHROOM. STAND BY ASST WITH WHEELED WALKER
--- NOTE | 2017-09-02 16:47 | NUR ---
CARE TEAM MEETING: PATIENT AHS DONE WELL IN THEREAPY AND WILL DISCHARGE HOME IN AM. DAUGHTER HAS CALL AND REQUESTED FOR MEDICAL RECORDS TO BE SENT TO [facility] IN [place] . PATIENT WILL BE MOVING TO [place] WHERE DAUGHTER LIVES IN 2 WEEKS. WILL DISCHARGE HOME WITH HOME HEALTH UNTIL THE MOVE. A WALKER HAS BEEN ORDERED FROM [facility]. WILL CONTINUE TO FOLLOW WITH PATIENT
--- NOTE | 2017-09-02 17:21 | NUR ---
PATIENT TO BE DISCHARGED HOME TOMORROW. THIS NURSE ANSWEARED QUESTIONS THAT PATIENT HAD IN REGARDS TO DISCHARGE TOMORROW
--- NOTE | 2017-09-02 19:15 | NUR ---
PT. IN BED WITH HOB UP FOR COMFORT AND IS WATCHING TV. ASSESSMENT COMPLETED. NO VOICED NEEDS AT THIS TIME EXCEPT NEEDING ASSISTANCE TO GO TO THE BR TO URINATE. PT. STILL C/O BURNING UPON URINATION. OFFERED PT. CRANBERRY JUICE AND SHE ACCEPTED. ASSISTED BACK TO BED AND POSITONED TO COMFORT AND SCD'S PLACED ON TO BLE'S. CALL LIGHT WITHIN REACH.
[2017-09-02 20:15] VITALS: BP 136/58
--- NOTE | 2017-09-02 23:08 | NUR ---
PT. IN BED LYING ON HER LEFT SIDE WITH EYES CLOSED AND RESP. EVEN. CALL LIGHT WITHIN REACH.
--- NOTE | 2017-09-03 03:10 | NUR ---
PT. IN BED LYING ON HER LEFT SIDE. EYES CLOSED AND RESP. EVEN. CALL LIGHT WITHIN REACH.
[2017-09-03 08:43] VITALS: BP 143/62
--- NOTE | 2017-09-03 10:01 | NUR ---
PATIENT DISCHARGING HOME TODAY. [facility] WILL FOLLOW WITH PATIENT FOR HOME THERAPY. DR. OCONNOR 09/14/17 @ 11:30. PATIENT CHOICE FORM FOR HOME HEALTH AND [facility] FORM SIGNED, EXPLAINED AND FILED IN CHART. RECORDS HAVE BEEN FAXED TO [facility] IN [place] FOR POSSIBLE ADMISSION.
--- NOTE | 2017-09-03 16:40 | NUR ---
PT DISCHARGED TO HOME VIA WHEELCHAIR WITH SON DISCHARGE SUMMARY AND MEDS REVIEWED WITH PT ALL MEDS CALLED TO [facility]ANTOS
== END 2017-09-03 18:17 | disposition home health service (06) | DRG 312 ==
LOC: D.REHAB 16:26
PROVIDERS: ADMIT Emergency Medicine
DX: I95.1 Orthostatic hypotension (principal); M06.9 Rheumatoid arthritis, unspecified; R53.1 Weakness; R41.82 Altered mental status, unspecified; R13.12 Dysphagia, oropharyngeal phase; K21.9 Gastro-esophageal reflux disease without esophagitis; J32.0 Chronic maxillary sinusitis; K76.0 Fatty (change of) liver, not elsewhere classified; Z91.81 History of falling; I10 Essential (primary) hypertension

== ENCOUNTER → 2018-11-19 14:40 | Outpatient (CLI) | payer MEDICARE ==
[2017-08-28 13:08] VITALS: BMI 33.3
[2018-11-19 15:47] LABS: APPEARANCE CLEAR (CLEAR); BILIRUBIN NEGATIVE (NEGATIVE); COLOR DK YELLOW (YELLOW); GLUCOSE NEGATIVE (NEGATIVE); KETONE NEGATIVE (NEGATIVE); NITRITE NEGATIVE (NEGATIVE); PROTEIN NEGATIVE (NEGATIVE); SPECIFIC GRAVITY 1.015 (1.005-1.020); UROBILINOGEN NORMAL (NORMAL)
[2018-11-19 15:48] LABS: BACTERIA FEW /hpf (NONE SEEN); EPITHELIAL CELLS 0-5 /hpf (0-5); RED CELLS - URINE 0-5 /hpf (0-5)
== END | disposition home or self-care (01) ==
LOC: D.LABREF 14:40
PROVIDERS: Family Medicine Adult Medicine
DX: R30.0 Dysuria (principal)